=== PATIENT | male | born 1985 | race Caucasian/White ===

== ENCOUNTER 2019-03-13 08:01 | Emergency (ER) | payer BC, OTHER ==
[~2019-03-13] VITALS: Ht 182.9 cm; Wt 83.0 kg
[2019-03-13 08:08] VITALS: BP 138/81
--- NOTE | 2019-03-13 08:41 | NUR ---
Patient discharged to home in stable condition. Written and verbal after care instructions given. Patient verbalizes understanding of instruction.
== END 2019-03-13 08:41 | disposition home or self-care (01) ==
LOC: ER 08:07
DX: J06.9 Acute upper respiratory infection, unspecified (principal)